=== PATIENT | female | born 1990 | race Caucasian/White ===

== ENCOUNTER 2021-07-25 06:15 | Emergency (ER) | payer OTHER ==
--- NOTE | 2021-07-25 06:49 | ED ---
General Adult HPI - General Chief complaint: Recheck/Abnormal Lab/Rx Stated complaint: Covid Test/Travel Time Seen by Provider: 07/25/21 06:40 Source: patient, RN notes reviewed Mode of arrival: ambulatory - History of Present Illness Initial comments: Well-appearing 31-year-old female presents with no symptoms however is [place] No recent sick contacts. Severity scale (1-10): 0 Associated Symptoms: denies other symptoms Treatments Prior to Arrival: none - Related Data Allergies Allergy/AdvReac Type Severity Reaction Status Date / Time amoxicillin Allergy Unknown Verified 07/25/21 06:26 Review of Systems ROS Statement: Those systems with pertinent positive or pertinent negative responses have been documented in the HPI. ROS Other: All systems not noted in ROS Statement are negative. Past Medical History Past Medical History: No Reported History History of Any Multi-Drug Resistant Organisms: None Reported Past Surgical History: No Surgical Hx Reported Past Psychological History: No Psychological Hx Reported Smoking Status: Never smoker Past Alcohol Use History: None Reported Past Drug Use History: None Reported General Exam Limitations: no limitations General appearance: alert, in no apparent distress Eye exam: Present: normal appearance. Absent: scleral icterus, conjunctival injection ENT exam: Present: normal exam, normal oropharynx, mucous membranes moist Respiratory exam: Present: normal lung sounds bilaterally. Absent: respiratory distress, wheezes, rales, rhonchi, stridor, accessory muscle use Cardiovascular Exam: Present: regular rate, normal heart sounds. Absent: JVD Neurological exam: Present: alert, oriented X3, normal gait Psychiatric exam: Present: normal affect, normal mood Skin exam: Present: warm, dry, intact, normal color. Absent: cyanosis, diaphoretic, petechiae, pallor Course Vital Signs 07/25/21 07/25/21 06:22 06:28 Temperature 97.9 F Pulse Rate 86 Respiratory 16 16 Rate Blood Pressure 117/76 O2 Sat by Pulse 99 Oximetry Medical Decision Making - Medical Decision Making This is a well-appearing 31-year-old female that presents for a coronavirus swab to [place] the [place]. She has no symptoms, no sick contacts. She denies any cough or shortness of breath. No fevers, nausea, vomiting or diarrhea. Covid swab is negative. She was directed to follow up with her primary care doctor as needed. - Lab Data Lab Results 07/25/21 Range/Units 06:30 Coronavirus (PCR) Not Detected (Not Detectd) Disposition Clinical Impression: Encounter for screening for COVID-19 Disposition: HOME SELF-CARE Condition: Good Additional Instructions: Follow-up with the primary care doctor as needed. Is patient prescribed a controlled substance at d/c from ED?: No Referrals: None,Stated [Primary Care Provider] - 1-2 days Time of Disposition: 07:19
[2021-07-25 07:37] VITALS: BP 98/69; PULSE 55; RESP 18; TEMP 97.3
== END 2021-07-25 07:36 | disposition home or self-care (01) ==
LOC: EC 06:15
DX: Z11.52 Encounter for screening for COVID-19 (principal); Z20.822 Contact with and (suspected) exposure to COVID-19
CPT/HCPCS: 87635; 99282